=== PATIENT | female | born 1985 | race Caucasian/White ===

== ENCOUNTER 2023-02-10 17:34 | Emergency (ER) | payer BC, SELFPAY ==
--- NOTE | 2023-02-10 18:09 | PC.NURSE ---
Pt not answering when called to triage
--- NOTE | 2023-02-10 18:16 | PC.NURSE ---
pt called to triage not in waiting room
== END 2023-02-10 18:09 | disposition left against medical advice (07) ==
LOC: ANHED 18:27
PROVIDERS: PCP Family Medicine
DX: Z53.21 Procedure and treatment not carried out due to patient leaving prior to being seen by health care provider (principal)
CPT/HCPCS: 99199

== ENCOUNTER 2025-05-06 12:17 | Outpatient (CLI) | payer BC, SELFPAY ==
--- NOTE | ~2025-05-06 | MM_ITS ---
EXAMINATION: MM screening josé miguel BI w [facility] HISTORY: Screening TECHNIQUE: Craniocaudal and mediolateral oblique 3-D tomosynthesis images were obtained and synthetic 2-D images were generated. CAD analysis was submitted and interpreted. COMPARISON: No prior mammogram is available for comparison at this institution. BREAST PARENCHYMAL COMPOSITION: Dense: The breasts are extremely dense, which lowers the sensitivity of mammography. FINDINGS: There is no evidence of suspicious mass, calcification, or architectural distortion to suggest malignancy in either breast. There has been no suspicious interval change. IMPRESSION: 1. No mammographic evidence of malignancy. 2. Recommend routine screening mammography in one year. BI-RADS Category 1: Negative Reviewed, dictated and finalized at location O. PROFESSIONAL
--- OUTSIDE RECORDS SUMMARY | 2025-05-06 12:19 | XMS_ITS | Clinical Summary ---
Author Organization [facility] Address [address] [place] [address] Care Team Providers Care Trailer Park Manager Name Role Phone Renea Gallagher MD Primary Care Provider Source Comments [facility],non-owned Affiliates and Associated Physician Practices is amultiple site organization consisting of ambulatory clinics and hospital sitesin [place], [place], [place] and [place]. This disclosure is being madepursuant to the Care Everywhere program and may not contain all information available regarding this patient. Last updated 18.[facility] Allergies No known active allergies Medications * Be aware that medications may not be up to date on this document. Alwaysverify current medications with the patient. levonorgestrel (MIRENA) 20 MCG/24HR IUD 1 Device by Intrauterine route as directed Active benzonatate (TESSALON) 100 MG capsuleIndicati ons:Acute bronchitis, unspecified organism Take 1 Cap by mouth 3 times daily as needed for Cough 30 Cap 6 Active methylPREDNISol one (MEDROL DOSEPAK) 4 MG tabletIndicatio ns:Acute bronchitis, unspecified organism Take by mouth as directed Use dose pack of 4mg tabs, start 24 mg/day, taper by 4mg/day over 6 days per pkg instructions. Take with food. 1 Each 6 Active azithromycin (ZITHROMAX) 250 MG tabletIndicatio ns:Abnormal sputum Take 2 tablets now, then 1 tablet daily for 4 days. 6 Tab 6 Active albuterol HFA (PROAIR HFA) 108 (90 BASE) MCG/ACT inhalerIndicati ons:Acute bronchitis, unspecified organism Inhale 2 Puffs by mouth every 6 hours as needed for Shortness of Breath, Wheezing or Cough 1 Inhaler 1 6 Active Family History Medical History Relation Name Comments Other Father fro m accident Relation Name Status Comments Father Mother Alive Social History Tobacco Use Types Packs/Day Years Used Date Smoking Tobacco: Never Tobacco Cessation:Counseling Given: No Alcohol Use Standard Drinks/Week Comments No 0 (1 standard drink = 0.6 oz pur e alcohol) Comments No Sex and Gender Information Value Date Recorded Sex Assigned at Not on file 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 Gender Identity Not on file Sexual Orientation Not on file Last Filed Vital Signs Vital Sign Reading Time Taken Comments Blood Pressure 122/80 06/03/2016 4:45 PM HOTEL ASSOCIATE Pulse 80 06/03/2016 4:45 PM HOTEL ASSOCIATE Temperature 37.1 C (98.7 F) 06/03/2016 4:45 PM HOTEL ASSOCIATE Respiratory Rate 20 06/03/2016 4:45 PM HOTEL ASSOCIATE Oxygen Saturation 98% 06/03/2016 4:45 PM HOTEL ASSOCIATE Inhaled Oxygen Concentration - - Weight 56.7 kg (125 lb) 06/03/2016 4:45 PM HOTEL ASSOCIATE Height 154.9 cm (5' 1) 06/03/2016 4:45 PM HOTEL ASSOCIATE Body Mass Index 23.62 06/03/2016 4:45 PM HOTEL ASSOCIATE Plan of Treatment Health Maintenance Due Date Last Done Comments HIV SCREENING 08/16/2002 HEPATITIS C SCREENING 08/12/2005 DTAP/TDAP/TD VACCINES (1 - Tdap) 08/16/2006 HEPATITIS B VACCINE (1 of 3 - 19+ 3-dose series) 08/16/2006 PAP SMEAR 08/16/2008 HPV VACCINE (1 - 3-dose SCDM series) 08/16/2014 Cervical Cancer Screening 08/16/2017 PAP with HPV 08/16/2017 DEPRESSION SCREENING 06/16/2024 COVID-19 VACCINE ( - 2024-2 6 season) 2025 INFLUENZA VACCINE (#1) 2025 ZOSTER VACCINE (1 of 2) 08/16/2037 HIB VACCINE Aged Out No longer eligi ble based on patient's age to complete this topic MENINGOCOCCAL (Group B) VACC INE SHARED DECISION-MAKING Aged Out No longer eligibl e based on patient's age to complete this topic MENINGOCOCCAL GROUPS A/C/Y/W VACCINE Aged Out No longer eligible b ased on patient's age to complete this topic PNEUMOCOCCAL VACCINE Aged Out No long er eligible based on patient's age to complete this topic Insurance [facility] Care Teams Trailer Park Manager Relationship Specialty Start Date End Date Renea Gallagher MD [address] [place] [address] PCP - General Internal Medicine 06/03/16
--- OUTSIDE RECORDS SUMMARY | 2025-05-06 12:19 | XMS_ITS | Clinical Summary ---
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 Gender Identity Not on file Sexual Orientation Not on file Plan of Treatment Health Maintenance Due Date Last Done Comments Hepatitis C Virus (HCV) Screening 1987 Varicella Immunization (1 of 2 - 13+ 2-dose series) 08/16/2000 Hepatitis B Immunization (1 of 3 - 19+ 3-dose series) 08/16/2006 Pap Smear 08/16/2008 Human Papillomavirus (HPV) Immunization (1 - 3-dose SCDM series) 08/16/2014 Cervical Cancer Screening (CCS) 08/16/2017 HPV/Cotest 08/16/2017 Influenza Immunization (#1) 2025 SARS-COV-2 Immunization ( season) 2025 06/20/2021, 10/05/2020, 09/14/2020 Respiratory Syncytial Virus (RSV) Immunization (Adult) (1 - 1-dose 75+ series) 08/16/2062 DTaP/Tdap/Td Immunization Discontinued 01/22/2013 TdaP Immunization Completed 01/22/2013 Meningococcal Immunization (ACWY) Aged Out No longer eligible based on patient's age to complete this topic Pneumococcal Immunization Combined Aged Out No longer eligible based on patient's age to complete this topic Rotavirus Immunization Aged Out No lo nger eligible based on patient's age to complete this topic
--- OUTSIDE RECORDS SUMMARY | 2025-05-06 12:19 | XMS_ITS | Patient Health Record ---
Author Organization [facility] Address [address] [place], [place] [id number] Care Team Providers Care Fundraising Specialist Name Role Phone SHEKHAR Saavedra Unavailable [phone] Renea Gallagher Unavailable Unavailable Reason For Referral No Information Social History Social History Additional Details Category Social Info Options Details Migrated Social History Migrated Social History Smoking Status : Never smoked , History of tobacco use : Plan Of Treatment No Information Insurance Providers Payer Name Payer Address Payer Phone Subscriber Number Group Number Insured Name Patient Relationship to Insured Coverage Start Date Coverage End Date R Brendon / NADER [address] [employer] [id number] JIMMY SALVADOR Self - patient is the insured
== END 2025-05-06 12:18 | disposition home or self-care (01) ==
LOC: CHSIMG 12:18
PROVIDERS: PCP Family Medicine; Visit Provider Nurse Practitioner Family
DX: Z12.31 Encounter for screening mammogram for malignant neoplasm of breast (principal); Z80.3 Family history of malignant neoplasm of breast
CPT/HCPCS: 77063; 77067